=== PATIENT | female | born 1965 | race African-American/Black ===

== ENCOUNTER 2018-03-20 13:15 | Emergency (ER) | payer OTHER ==
[2018-03-20] MEDS: SOD CHLORIDE 0.9% 1,000 ML IV (14:32)
[2018-03-20 14:59] LABS: ADD MAN DIFF? NO
[2018-03-20 15:03] LABS: BASOPHIL # 0.1 10^3/ul (0.0-0.1); EOSINOPHILS # 0.2 10^3/ul (0.0-0.5); EOSINOPHILS % 3.6 % (0.0-7.0); HEMATOCRIT 43.5 % (37.0-47.0); HEMOGLOBIN 14.7 g/dl (12.0-16.0); LYMPHOCYTES # 2.5 10^3/ul (0.8-2.9); LYMPHOCYTES % 41.3 % (15.0-51.0); MEAN CORPUSCULAR HEMOGLOBIN 31.5 pg (29.0-33.0); MEAN CORPUSCULAR HGB CONC 33.8 g/dl (32.0-37.0); MEAN CORPUSCULAR VOLUME 93.3 fl (82.0-101.0); MEAN PLATELET VOLUME 9.5 fl (7.4-10.4); MONOCYTE # 0.6 10^3/ul (0.3-0.9); MONOCYTES % 9.4 % (0.0-11.0); NEUTROPHIL # 2.7 10^3/ul (1.6-7.5); NEUTROPHILS % 44.5 % (39.0-77.0); PLATELET COUNT 244 10^3/UL (140-415); RED BLOOD COUNT 4.66 10^6/ul (4.20-5.40)
[2018-03-20 15:03] LABS: WHITE BLOOD COUNT 6.2 10^3/ul (4.8-10.8)
[2018-03-20 15:24] LABS: ANION GAP 14 (8-16); BLOOD UREA NITROGEN 17 mg/dl (7-20); CARBON DIOXIDE 29 mmol/L (21-31); CHLORIDE 107 mmol/L (97-110); CREATININE 0.88 mg/dl (0.44-1.00); GLUCOSE 90 mg/dl (70-220); SODIUM 146 mmol/L (135-144)
[2018-03-20] MEDS: IOHEXOL 300MG/ML 150 ML BTL (16:12)
[2018-03-20] MEDS: SOD CHLORIDE 0.9% 100 ML (16:12)
[2018-03-20] MEDS: NICARDipine HCL 30 MG CAPSULE PO (17:22)
== END 2018-03-20 17:56 | disposition left against medical advice (07) ==
LOC: FTE 13:15
DX: K11.20 Sialoadenitis, unspecified (principal); F17.210 Nicotine dependence, cigarettes, uncomplicated
CPT/HCPCS: 36415; 70491; 80048; 85025; 99285-25